=== PATIENT | male | born 2000 | race Caucasian/White ===

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

== ENCOUNTER 2019-06-03 00:55 | Emergency (ER) | payer OTHER ==
[2019-06-03] MEDS ORDERED: LORazepam INJ* 2 MG/ML 1 ML VIAL IM ONE (01:00)
[2019-06-03] MEDS ORDERED: diPHENhydraMINE IV* 50 MG/ML 1 ml VIAL (BENADRYL) IM ONE (01:00)
[2019-06-03] MEDS ORDERED: Haloperidol INJ IV/IM* 5 MG/ML AMP IM ONE (01:00)
[2019-06-03] MEDS ORDERED: LORazepam INJ* 2 MG/ML 1 ML VIAL ONE (01:02)
--- NOTE | 2019-06-03 01:08 | ED ---
Substance Abuse/Use - HPI Summary HPI Summary: This pt is a 19 Y/O M brought to [facility] by EMS and police after taking 3 tablets of acid per him and his roommates. The police state that the pt became hostile towards his roommates and had a physical altercation with the police upon arrival. The pt is a level 5 caveat due to his altered mental status. Pt had a similar case last year upon review of his medical records. - History Of Current Complaint Chief Complaint: EDSubstanceAbuse Stated Complaint: 941 PER EMS Time Seen by Provider: 06/03/19 00:58 Hx Obtained From: Patient Hx From Patient Unobtainable Due To: Other - intoxication Ingestion History: Type/Name Of Drug - LSD, Amount Ingested - 3 tablets per roommates Overdose Characteristics: Oral Severity Initially: Moderate Severity Currently: Moderate Character: Manic Associated Signs And Symptoms: Hostile - Allergies/Home Medications Allergies/Adverse Reactions: Allergies Allergy/AdvReac Type Severity Reaction Status Date / Time No Known Allergies Allergy Verified 05/10/18 08:18 Home Medications: Home Medications NK [No Home Medications Reported] 05/10/18 [History Confirmed 05/10/18] PMH/Surg Hx/FS Hx/Imm Hx Previously Healthy: No - PE unobtainable due to pt's current mental status. Level 5 caveat. Sensory History: Denies: Hx Legally Blind, Hx Deafness Opthamlomology History: Denies: Hx Legally Blind - Surgical History Surgery Procedure, Year, and Place: no PSHx reported on 05/10/18 Infectious Disease History: No Infectious Disease History: Denies: Traveled Outside the [place] in Last 30 Days - Family History Known Family History: Positive: Other - no FMHx of CA Negative: Cardiac Disease, Diabetes - Social History Alcohol Use: Occasionally Hx Substance Use: Yes Substance Use Type: Reports: Marijuana Smoking Status (MU): Never Smoked Tobacco Review of Systems - ROS Summary Review of Systems Summary: A full ROS is unobtainable due to the pt's current mental status. He is a level 5 caveat. Psychological: Other - hostile All Other Systems Reviewed And Are Negative: No Physical Exam - Summary Physical Exam Summary: Appearance: Well-appearing, Well-nourished, lying in bed comfortable Skin: Warm, dry, no obvious rash Eyes: sclera anicteric, no conjunctival pallor ENT: mucous membranes moist Neck: deferred Respiratory: No signs of respiratory distress Cardiovascular: Appears well perfused, pulses are nml Abdomen: deferred Musculoskeletal: Moving all 4 extremities without obvious discomfort Neurological: Awake and alert but clearly under the influence of an intoxicant and not answering any questions manfully. Able to state his name. Was reported to be hostile on the scene with his roommates and police, had to physically restrained. Psychiatric: affect is normal, does not appear anxious or depressed A full PE is unobtainable due to the pt's AMS, he is a level 5 caveat. Triage Information Reviewed: Yes Vital Signs On Initial Exam: Initial Vitals Temp Pulse Resp BP Pulse Ox 0 F 0 0 0/0 0 06/03/19 00:55 06/03/19 00:55 06/03/19 00:55 06/03/19 00:55 06/03/19 00:55 Vital Signs Reviewed: Yes Procedures - Sedation Patient Received Moderate/Deep Sedation with Procedure: No Diagnostics - Vital Signs Vital Signs Temp Pulse Resp BP Pulse Ox 06/03/19 00:55 0 F 0 0 0/0 0 - Laboratory Result Diagrams: 06/03/19 01:32 06/03/19 01:32 Lab Statement: Any lab studies that have been ordered have been reviewed, and results considered in the medical decision making process. Re-Evaluation - Re-Evaluation First Eval Re-Evaluation Time: 02:02 Change: Unchanged Comment: Pt was re-evaluated due to chemical and physical restriaints. He has good breath and pulses. He is stable. Course/Dx - Course Course Of Treatment: This pt is a 19 Y/O M brought to [facility] by EMS and police after taking 3 tablets of acid per him and his roommates. The police state that the pt became hostile towards his roommates and had a physical altercation with the police upon arrival. The pt is a level 5 caveat due to his altered mental status. His PE found he is currently awake and alert but clearly under the influence of an intoxicant and not answering any questions manfully. Able to state his name. Pt received chemical sedation with haldol, benadryl, and ativan at 0101. He was also physically restrained. He will be re-evaluated at 0201. He will be discharged home with a Dx of substance abuse after being walked at 0606. - Diagnoses Provider Diagnoses: Substance abuse Discharge ED - Sign-Out/Discharge Documenting (check all that apply): Patient Departure - discharge - Discharge Plan Condition: Good Disposition: HOME Patient Education Materials: Polysubstance Abuse (ED) Referrals: [facility] [Provider Group] - 2 Days Additional Instructions: PLEASE FOLLOW UP WITH [facility] IN 1-3 DAYS. RETURN TO THE EMERGENCY DEPARTMENT FOR ANY NEW OR WORSENING SYMPTOMS. - Billing Disposition and Condition Condition: GOOD Disposition: Home - Attestation Statements Document Initiated by Judieibe: Yes Documenting Scribe: Nayan Donohue Provider For Whom Jez is Documenting (Include Credential): Joselin Aldana MD Scribe Attestation: Nayan Noel, scribed for Joselin Aldana MD on 06/03/19 at 1931. Scribe Documentation Reviewed: Yes Provider Attestation: The documentation as recorded by the Nayan hidalgo accurately reflects the service I personally performed and the decisions made by , Joselin Aldana MD Status of Scribe Document: Viewed
[2019-06-03 01:39] LABS: ABS Lymphocytes 0.6 10^3/ul (1.0-4.8); ABS Monocytes 0.4 10^3/ul (0-0.8); ABS Neutrophils 7.5 10^3/ul (1.5-7.7); Hematocrit 38 % (42-52); Hemoglobin 13.1 g/dL (14.0-18.0); Lymphocyte % 6.9 %; Mean Corpuscular HGB Conc 35 g/dL (31-36); Mean Corpuscular Hemoglobin 32 pg (27-31); Mean Corpuscular Volume 91 fL (80-94); Mean Platelet Volume 7.3 fL (7.4-10.4); Platelet Count 168 10^3/uL (150-450); Red Blood Count 4.16 10^6 /uL (4.18-5.48); Red Cell Distribution Width 14 % (10-15); White Blood Count 8.5 10^3/uL (3.5-10.8)
[2019-06-03 01:56] LABS: ALT 44 U/L (7-52); AST 34 U/L (13-39); Albumin 4.8 g/dL (3.2-5.2); Albumin/Globulin Ratio 2.3 (1-3); Alkaline Phosphatase 92 U/L (34-104); Anion Gap 11 mmol/L (2-11); BUN/Creatinine Ratio 20.5 (8-20); Blood Urea Nitrogen 23 mg/dL (6-24); CO2 Carbon Dioxide 23 mmol/L (22-32); Calcium 9.2 mg/dL (8.6-10.3); Chloride 102 mmol/L (101-111); EGFR African American 101.1 (>60); EGFR Non-African American 83.6 (>60); Globulin 2.1 g/dL (2-4); Glucose 172 mg/dL (70-100); Potassium 3.5 mmol/L (3.5-5.0); Sodium 136 mmol/L (135-145); Total Protein 6.9 g/dL (6.4-8.9)
[2019-06-03 02:01] LABS: Acetaminophen < 15 mcg/mL; Alcohol < 10 mg/dL (<10); Salicylate < 2.50 mg/dL (<30)
[2019-06-03 05:23] VITALS: BP 139/83
== END 2019-06-03 05:55 | disposition home or self-care (01) ==
LOC: ED 00:55
DX: F19.10 Other psychoactive substance abuse, uncomplicated (principal); R41.82 Altered mental status, unspecified
CPT/HCPCS: 36415; 80053; 80320; 80329; 85025; 99283; G0480; J1200; J1630; J2060